=== PATIENT | male | born 1950 | race Caucasian/White ===

== ENCOUNTER 2018-02-04 09:11 | Emergency (ER) | payer MEDICARE ==
[2018-02-04 09:20] VITALS: BP 121/57
--- NOTE | 2018-02-04 09:36 | UC ---
Skin Complaint HPI - HPI Summary HPI Summary: 67 year old male with skin concern. Having redness. No fever. no pain. has had lyme in the past and does NOT feel like that. has been pulling bushes. he is warm soak he arm yesterday and it did not improve. no streaking. no discharge. - History of Current Complaint Chief Complaint: UCSkin Time Seen by Provider: 02/04/18 09:28 Stated Complaint: RED SPOT ON ARM Onset/Duration: Gradual Onset Timing: Constant Onset Severity: Mild Current Severity: Moderate Pain Intensity: 0 Aggravating Factor(s): Nothing Alleviating Factor(s): Nothing Associated Signs & Symptoms: Positive: Negative - Allergy/Home Medications Allergies/Adverse Reactions: Allergies Allergy/AdvReac Type Severity Reaction Status Date / Time No Known Allergies Allergy Verified 02/04/18 09:21 Review of Systems Skin: Other - redness All Other Systems Reviewed And Are Negative: Yes PMH/Surg Hx/FS Hx/Imm Hx Previously Healthy: Yes - Surgical History Surgical History: None - Family History Known Family History: Positive: None - Social History Lives: With Family Alcohol Use: None Substance Use Type: None Smoking Status (MU): Never Smoked Tobacco Physical Exam Triage Information Reviewed: Yes Appearance: Well-Appearing, No Pain Distress, Well-Nourished Vital Signs: Initial Vital Signs Temp 96.5 F 02/04/18 09:17 Pulse 54 02/04/18 09:17 Resp 15 02/04/18 09:17 BP 121/57 02/04/18 09:17 Pulse Ox 100 02/04/18 09:17 Vital Signs Reviewed: Yes Eye Exam: Normal Neck: Positive: 1 Respiratory Exam: Normal Cardiovascular Exam: Normal Musculoskeletal Exam: Normal Neurological Exam: Normal Psychological Exam: Normal Skin Exam: Normal Skin: Positive: Other - right dorsal forearm with reddened raised tender area 2x3 cm no discharge no streaking. no erythema, also small round raised non tender irritation just distal to elbow no axillary lymphadenopathy Course/Dx - Course Course Of Treatment: could be irritation/ dermatitis from recent yard work, with the redness advised to be concerns with eryhema for cellulitis--- he is resistant to this , wants to warm pack / soak the area and if not better or worsened then start antibiotics i advised delayed treatment could worsen out comes he is aware of SE from meds and will take with meal . RTO if any concerns - Differential Diagnoses - Skin Complaint Differential Diagnoses: Allergic Reaction, Cellulitis, Contact Dermatitis, Local Allergic Reaction, Lymphadenitis, Urticaria - Diagnoses Provider Diagnoses: right arm cellulitis Discharge - Sign-Out/Discharge Documenting (check all that apply): Discharge/Admit/Transfer - Discharge Plan Condition: Good Disposition: HOME Prescriptions: Cephalexin CAP* [Keflex 500 CAP*] 500 mg PO TID #30 cap Patient Education Materials: Cellulitis (ED) Referrals: No Primary Care Phys,NOPCP [Primary Care Provider] - 4 Days Additional Instructions: As we discussed you may soak the area and use topical triple antibiotic on the area of concern. If your symptoms worsen or the redness spreads then start the antibiotic pill please . - Billing Disposition and Condition Condition: GOOD Disposition: HOME
== END 2018-02-04 10:00 | disposition home or self-care (01) ==
LOC: UCEAST 09:11
DX: L03.113 Cellulitis of right upper limb (principal)
CPT/HCPCS: 99202; G0463

== ENCOUNTER 2018-03-20 19:24 | Emergency (ER) | payer MEDICARE ==
[2018-03-20 19:45] VITALS: BP 105/58
[2018-03-20] MEDS ORDERED: Lidocaine 2% PF * 5 ML VIAL IV ONE (20:18)
--- NOTE | 2018-03-20 20:53 | UC ---
Ailin Morrison Tenzin, scribed for Rosalinda Zamora MD on 03/20/18 at 2013 . Laceration HPI - HPI Summary HPI Summary: Pt is a 67 years old male presenting to the complaining of a laceration on tip of his 4th finger on the right hand today at 11:00. He was doing tree work today and his finger got pinched when it accidentally rolled over his finger. He has lyme disease but currently is not on any medication. He is not allergic to any medications. - History Of Current Complaint Chief Complaint: UCLaceration Stated Complaint: RIGHT HAND RING FINGER LAC Time Seen by Provider: 03/20/18 20:01 Hx Obtained From: Patient Laceration Location: Finger - 4th finger on his right hand. Onset/Duration: Sudden Onset - today at 11:00 Pain Intensity: 0 - Allergies/Home Medications Allergies/Adverse Reactions: Allergies Allergy/AdvReac Type Severity Reaction Status Date / Time No Known Allergies Allergy Verified 03/20/18 19:45 Home Medications: Home Medications Pyridoxine TAB* [Vitamin B6 TAB*] 03/20/18 [History] PMH/Surg Hx/FS Hx/Imm Hx - Additional Past Medical History Additional PMH: POSITIVE: LYME DISEASE NEGATIVE: CVA - Surgical History Surgical History: None - Family History Known Family History: Positive: None - Social History Alcohol Use: None Substance Use Type: None Smoking Status (MU): Never Smoked Tobacco - Immunization History Most Recent Tetanus Shot: 4-5 YEARS AGO Review of Systems Constitutional: Negative Skin: Other - laceration on the tip of 4th finger on his right hand. Eyes: Negative ENT: Negative Respiratory: Negative Cardiovascular: Negative Gastrointestinal: Negative Genitourinary: Negative Motor: Negative Neurovascular: Negative Musculoskeletal: Negative Neurological: Negative Psychological: Negative All Other Systems Reviewed And Are Negative: Yes Physical Exam Vital Signs: Initial Vital Signs Temp 97.9 F 03/20/18 19:41 Pulse 51 03/20/18 19:41 Resp 16 03/20/18 19:41 BP 105/58 03/20/18 19:41 Pulse Ox 100 03/20/18 19:41 Laceration Repair - Laceration Repair 1 Laceration Size After Repair: Length (cm) - 1.5 Anesthesia Used: 2.0% Lido Closure Method: Single Layer - 4 sutures. Suture Of: Skin Suture Type: Nylon - 5-0 Discharge - Discharge Plan Condition: Stable Disposition: HOME Prescriptions: Cephalexin CAP* [Keflex CAP*] 500 mg PO TID #21 cap Patient Education Materials: Care For Your Stitches (DC), Finger Laceration (ED ) Referrals: Roberto Conner MD [Primary Care Provider] - Additional Instructions: - your stitches should come out in 8-10 days - you can return here, go to your Doctor or any urgent care center - okay to alternate ibuprofin (advil, motrin) and tylenol every 3hours as needed for pain -Anticipate increased discomfort over the next several hours as the numbing medication wears off -Keep your wound clean and dry - no soaking for 24 hours. Then, okay for wound to get wet - pat dry, don't rub -apply a thin layer of antibiotic ointment (neosporin, polysporin) 2-3 times a day - It is recommended you take antibiotics as prescribed - keep your wound clean - monitor for signs of infection - reddness, red streaking, odor, green drainage - it may take up to 8 months for your scar to reach its final state - Contact your doctor or return here with questions or concerns The documentation as recorded by the Ailin anderson Tenzin accurately reflects the service I personally performed and the decisions made by me, Rosalinda Zamora MD.
== END 2018-03-20 21:05 | disposition home or self-care (01) ==
LOC: UCEAST 19:24
DX: S61.214A Laceration without foreign body of right ring finger without damage to nail, initial encounter (principal); W33.19XA Accidental malfunction of other larger firearm, initial encounter; Y93.89 Activity, other specified; Y92.9 Unspecified place or not applicable
CPT/HCPCS: 12001; 99212; G0463

== ENCOUNTER 2018-03-28 21:01 | Emergency (ER) | payer MEDICARE ==
--- NOTE | 2018-03-28 21:06 | UC ---
Skin Complaint HPI - HPI Summary HPI Summary: 67 yo male presents for suture removal to right 4th finger placed 8 days ago. Appears well healed. Has had no issues - History of Current Complaint Time Seen by Provider: 03/28/18 21:05 Stated Complaint: SUTURE REMOVAL Hx Obtained From: Patient Current Severity: None - Allergy/Home Medications Allergies/Adverse Reactions: Allergies Allergy/AdvReac Type Severity Reaction Status Date / Time No Known Allergies Allergy Verified 03/20/18 19:45 Review of Systems Constitutional: Negative Skin: Other - [address] right 4th finger Respiratory: Negative Cardiovascular: Negative Neurovascular: Negative Musculoskeletal: Negative Neurological: Negative Psychological: Negative All Other Systems Reviewed And Are Negative: Yes PMH/Surg Hx/FS Hx/Imm Hx - Additional Past Medical History Additional PMH: None Previously Healthy: Yes - Surgical History Surgical History: None - Family History Known Family History: Positive: None - Social History Occupation: Employed Full-time Lives: With Family Alcohol Use: None Substance Use Type: None Smoking Status (MU): Never Smoked Tobacco - Immunization History Most Recent Tetanus Shot: 4-5 YEARS AGO Physical Exam - Summary Physical Exam Summary: GENERAL: NAD. WDWN. No pain distress. SKIN: [address] right 4th finger. Well healed and approximated. No streaking, bleeding, or drainage. NECK: Supple. Nontender. No lymphadenopathy. CHEST: No accessory muscle use. Breathing comfortably and in no distress. CV: Pulses intact. Good cap refill NEURO: Alert. Sensations intact right 4th finger PSYCH: Age appropriate behavior. Triage Information Reviewed: Yes Vital Signs: Vital Signs: Temp Pulse Resp BP Pulse Ox 98.6 F 117/59 03/28/18 21:09 03/28/18 21:09 Course/Dx - Course Course Of Treatment: sutures removed without issue. Pt tolerated well - Diagnoses Provider Diagnoses: Suture removal Discharge - Sign-Out/Discharge Documenting (check all that apply): Discharge/Admit/Transfer - Discharge Plan Condition: Stable Disposition: HOME Patient Education Materials: Stitches Removal (ED) Referrals: Roberto Conner MD [Primary Care Provider] - Additional Instructions: If you develop a fever, shortness of breath, chest pain, new or worsening symptoms - please call your PCP or go to the ED. - Billing Disposition and Condition Condition: STABLE Disposition: Home
[2018-03-28 21:11] VITALS: BP 117/59
== END 2018-03-28 21:20 | disposition home or self-care (01) ==
LOC: UCEAST 21:01
DX: S61.214D Laceration without foreign body of right ring finger without damage to nail, subsequent encounter (principal); X58.XXXD Exposure to other specified factors, subsequent encounter